=== PATIENT | male | born 1955 ===

== ENCOUNTER 2017-09-21 15:20 | Outpatient (CLI) | payer OTHER ==
[~2017-09-21] VITALS: Ht 152.4 cm; Wt 97.5 kg
[~2017-09-21 15:20] MED LIST: LIPO-FLAVONOID1 EACH PO; OMEPRAZOLE40 MG PO; ZANTAC300 MG PO
== END 2017-09-21 15:40 | disposition home or self-care (01) ==
LOC: OFIC 805 15:20
DX: R42 Dizziness and giddiness (principal); H90.3 Sensorineural hearing loss, bilateral

== ENCOUNTER 2017-11-02 07:52 | Outpatient (CLI) | payer OTHER ==
[~2017-11-02] VITALS: Ht 152.4 cm; Wt 98.0 kg
== END 2017-11-02 08:15 | disposition home or self-care (01) ==
LOC: OFIC 805 07:52
DX: J31.0 Chronic rhinitis (principal); J34.2 Deviated nasal septum; R42 Dizziness and giddiness; H90.3 Sensorineural hearing loss, bilateral